=== PATIENT | female | born 1960 | race Caucasian/White ===

== ENCOUNTER 2022-06-25 10:56 | Day surgery (SDC) | payer OTHER ==
[2022-06-21 16:23] LABS: BASOPHILS # (AUTO) 0.1 X10'3 (0-0.2); BASOPHILS % (AUTO) 0.7 % (0-1); EOSINOPHILS # (AUTO) 0.4 X10'3 (0-0.9); EOSINOPHILS % (AUTO) 4.7 % (0-6); LYMPHOCYTES # (AUTO) 2.1 X10'3 (1.1-4.8); LYMPHOCYTES % (AUTO) 27.1 % (21-51); MEAN CORPUSCULAR HEMOGLOBIN 34.5 PG (27.0-31.0); MEAN CORPUSCULAR HGB CONC 34.9 g/dL (33.0-36.5); MEAN CORPUSCULAR VOLUME 98.9 FL (78-98); MEAN PLATELET VOLUME 9.4 FL (7.4-10.4); MONOCYTES # (AUTO) 0.7 X10'3 (0-0.9); MONOCYTES % (AUTO) 8.7 % (2-12); NEUTROPHILS # (AUTO) 4.6 X10'3 (1.8-7.7); NEUTROPHILS % (AUTO) 58.8 % (42-75); PRE OP HEMATOCRIT 38.6 % (35.0-45.0); PRE OP HEMOGLOBIN 13.5 g/dL (12.0-16.0); PRE OP PLATELET COUNT 213 X10'3 (140-440); RED CELL DISTRIBUTION WIDTH 12.2 % (11.5-14.5)
[2022-06-21 16:36] LABS: ALBUMIN 3.6 G/DL (3.4-5.0); ALBUMIN/GLOBULIN RATIO 0.8 (1.1-1.5); ALKALINE PHOSPHATASE 138 IU/L (46-116); BLOOD UREA NITROGEN 13 MG/DL (7-18); BUN/CREATININE RATIO 16.9 (6.6-38.0); CALCIUM 9.2 MG/DL (8.5-10.1); CHLORIDE 106 MMOL/L (99-107); CREATININE 0.77 MG/DL (0.40-0.90); PRE OP ANION GAP 7 (8-16); PRE OP AST 50 U/L (10-37); PRE OP BILIRUB, TOTAL 0.4 MG/DL (0.0-1.0); PRE OP POTASSIUM 3.9 MMOL/L (3.4-5.1); PRE OP SODIUM 143 MMOL/L (135-145); TOTAL CARBON DIOXIDE 29.7 MMOL/L (24-32); eGFR 76 ML/MIN
[2022-06-21 16:38] LABS: PRE OP GLUCOSE 97 MG/DL (70-104)
[2022-06-21 16:39] LABS: PRE OP ALT 82 U/L (30-65)
[2022-06-25] VITALS (12 sets, daily range): BP systolic 138–173; BP diastolic 82–107
[~2022-06-25] VITALS: Ht 157.5 cm; Wt 60.5 kg
[~2022-06-25 10:56] MED LIST: ceFAZolin inj. 2,000 MG in dextrose 5%-water 100 ML IV ONE; famotidine 20mg tablet PO ONE; ringers solution, lacted 1,000 ML IV SCH
[2022-06-25] MEDS ORDERED: IBUP-2417 PO (12:27)
[2022-06-25] MEDS ORDERED: FAMO20TA8 PO (12:27)
[2022-06-25] MEDS ORDERED: ringers solution, lacted 1,000 ML IV SCH (12:45)
[2022-06-25] MEDS ORDERED: proCHLORperazine 10 MG/2 ml inj IV PRN (12:45)
[2022-06-25] MEDS ORDERED: morphine 2 MG/ML inj. syringe IV PRN (12:45)
[2022-06-25] MEDS ORDERED: ketorolac tromethamine 15mg/ml inj. IV ONE (12:45)
[2022-06-25] MEDS ORDERED: morphine 4 MG/ML inj SYRINge IV PRN (12:45)
[2022-06-25] MEDS ORDERED: labetalol 20mg/4ml (5mg/ml) syringe IV PRN (12:45)
[2022-06-25] MEDS ORDERED: hydrALAZINE 20mg/ml inj. IV PRN (12:45)
[2022-06-25] MEDS ORDERED: acetaminophen 1,000mg/100ml IV 100 ML IV PRN (12:45)
[2022-06-25] MEDS ORDERED: meperidine/PF 25mg/ml syringe IV PRN ×3 (12:45)
[2022-06-25] MEDS ORDERED: ondansetron/PF 4mg/2ml inj IV PRN (12:45)
[2022-06-25] MEDS ORDERED: LIDOcaine 1% 30ml preserv. free vial ONE (13:36)
[2022-06-25] MEDS ORDERED: BUPIVAcaine/PF 2.5 mg/ml (0.25%) 30ml vial ONE (13:36)
[2022-06-25] MEDS ORDERED: BUPIVACAINE liposomal/PF 13.3 MG/ML vial IM ONE ×3 (13:37→14:24)
[2022-06-25] MEDS ORDERED: sevoflurane 250ml liquid IH ONE (13:49)
[2022-06-25] MEDS ORDERED: midazolam 1 mg/ML 2ml injection ONE (13:49)
[2022-06-25] MEDS ORDERED: fentaNYL /PF 50mcg/ml 5ml ampule ONE (13:55)
[2022-06-25] MEDS ORDERED: BUPIVAcaine/PF 2.5 mg/ml (0.25%) 30ml vial IJ ONE ×2 (14:19→14:24)
[2022-06-25] MEDS ORDERED: LIDOcaine 1% 30ml preserv. free vial IJ ONE (14:19)
[2022-06-25] MEDS ORDERED: propofol inj 20 ML IV ONE ×2 (14:20→14:21)
[2022-06-25] MEDS ORDERED: ondansetron/PF 4mg/2ml inj ONE (14:21)
[2022-06-25] MEDS ORDERED: dexamethasone sod phosphate 4mg/ml inj. ONE (14:21)
[2022-06-25] MEDS ORDERED: rocuronium 10mg/ml inj IV ONE (14:21)
[2022-06-25] MEDS ORDERED: LIDOcaine 2% (20mg/ml) 5ml vial ONE (14:21)
[2022-06-25] MEDS ORDERED: glycopyrrolate 0.2mg/ml inj ONE (15:14)
[2022-06-25] MEDS ORDERED: neostigmine methylsulfate 1 MG/ML 10ml vial ONE (15:14)
--- NOTE | 2022-06-25 15:20 | NUR ---
PT ARRIVED TO [facility] VIA GURNEY ACCOMPANIED BY DR. THORNTON, ANESTHESIA REPORT GIVEN, VSS, PAINFUL AT INCISION SITE-ABD BINDER PRESENT, WILL GET PAIN MEDS DRAKE, SCDS ON, PIV 20G TO LEFT FA, BANDAIDS PRESENT-CDI
[2022-06-25] MEDS ORDERED: oxyCODONE/APAP 5-325mg tablet PO PRN (15:30)
--- NOTE | 2022-06-25 17:30 | NUR ---
PT UP AND GETTING DRESSED, NO CHANGES IN ASSESSMENT,TOLERATING PAIN AND MOVEMENT-GIVEN 1 PERCOCET FOR PAIN, VSS, TOLERATING FLUIDS, ABD BINDER PRESENT-BANDAIDS CDI, D/C INSTRUCTIONS GIVEN-ALL QUESTIONS ANSWERED, PIV D/CD-CANULA INTACT, TAKEN DOWN TO ADMITTING TO GET BELONGINGS FROM [facility], GIVEN TRANSPORT HOME BY PT'S SON.
== END 2022-06-25 17:30 | disposition home or self-care (01) ==
LOC: PAS 10:56
PROVIDERS: ATTEND Surgery
DX: K42.0 Umbilical hernia with obstruction, without gangrene (principal); K21.9 Gastro-esophageal reflux disease without esophagitis; Z79.899 Other long term (current) drug therapy; Z98.890 Other specified postprocedural states; G89.18 Other acute postprocedural pain; Z98.51 Tubal ligation status; Z90.49 Acquired absence of other specified parts of digestive tract; Z72.89 Other problems related to lifestyle; F17.210 Nicotine dependence, cigarettes, uncomplicated
CPT/HCPCS: 36415; 49653; 64488; 80053; 82948; 85025; 87811; 93005; C1781; C9290; J0131; J0690; J1100; J1885; J2175; J2250; J2270; J2405; J2704; J2710; J3010; J3490; J7030; J7060; J7120; S2900; Z7506; Z7508; Z7512; A4215; A4615; A4618